=== PATIENT | male | born 1955 | race Caucasian/White ===

== ENCOUNTER 2021-05-23 23:22 | Inpatient (IN) | payer MEDICARE ==
[~2021-05-23] VITALS: Ht 172.7 cm; Wt 88.9 kg
[2021-05-23] MEDS ORDERED: ATORVASTATIN CA80 MG PO (23:45)
[2021-05-23] MEDS ORDERED: PLAVIX75 MG PO (23:45)
[2021-05-23] MEDS ORDERED: LISINOPRIL40 MG PO (23:46)
[2021-05-23] MEDS ORDERED: ADULT ASPIRIN R81 MG PO (23:48)
--- NOTE | 2021-05-24 03:37 | NUR ---
CALLED TON NIXON ON BEHALF OF THE LAB TO NOTIFY HER OF PT GROUP A STREP RESULTS BEING NEGATIVE. CALL TAKEN BY MIKE NIXON.
--- NOTE | 2021-05-24 03:39 | NUR ---
PATIENT ARRIVED AT 0300. PATIENT IS ALERT AND OREITNED. STOOD WITHOUT ASSISTANCE TO TRANSFER TO THE BED. PATIENT IS CLEARING HIS THROAT FREQUENTLY AND HAD MODERATE AMOUNT OF SPUTUM. VOICE IS "RASPY" AND PATIENT STATES IT IS USUALLY NOT LIKE THAT. TOLERATING ROOM AIR. DENIES FEELING SOB. STATES "I'M JUST WORN OUT NOW". LUNG SOUNDS ARE COARSE WITH RHONCHI THROUGHOUT. UPPER AIRWAY CONGESTION NOTED. PATIENT DENIES PAIN, GI CONCERNS, OR SKIN ISSUES. PATIENT AMBULATED TO THE BATHROOM TO HAVE BM AND VOID. RETURNED TO BED. HOB >30 DEGREES. IV SITE WNL X2, FFP INFUSING PER ORER. NO SIGNS OF ADVERSE REACTION. PATIENT VERBALIZED UNDERSTANDING TO REPORT ANY NEW CONCERNS AND TO CALL FOR ASSISTANCE PRIOR TO EXITING THE BED. CALL LIGHT IN REACH.
--- NOTE | 2021-05-24 04:27 | NUR ---
FFP FINISHED. SITE WNL. NO SIGN REACTION. VS STABLE.
--- NOTE | 2021-05-24 05:58 | NUR ---
PATIENT APPEARS TO BE SLEEPING SOUNDLY. LAB IN FOR MORNING DRAW. PATIENT WAKES EASILY. DENIES ANY CONCERNS. CONSONITNUES TO CLEAR HIS THROAT FREQUENTLY. HOB ELEVATED TO 30 DEGREES. VS STABLE.
--- NOTE | 2021-05-24 07:30 | NUR ---
REPORT RECIEVED. PATIENT IS SLEEPING NO DISTRESS NOTED.
--- NOTE | 2021-05-24 07:45 | NUR ---
AWAKE. SAID HE IS BREATHING IS BETTER. VOICE IS SOMEWHAT RASPY. TALKED WITH PATIENT ABOUT POC FOR DAY, INDICATES UNDERSTANDING. YEE IS AWARE OF NPO STATUS. NO QUESTIONS FOR PATIENT.
--- NOTE | 2021-05-24 08:00 | NUR ---
ASSESSMENT DONE BY Shawn REAL RN. PATIENT RESTING WITH HOB ELEVATED. DENYAOS PROBLEMS.
--- NOTE | 2021-05-24 09:20 | NUR ---
SLEEPING, NO DISTRESS NOTED.
--- NOTE | 2021-05-24 11:31 | NUR ---
PT SLEEPING IN BED. CALL LIGHT IN REACH. PT CURRENTLY CLOSE TO NURSES STATION WITH DOOR OPEN.
[2021-05-24] MEDS ORDERED: VITAMIN B-121000 MCG PO (13:35)
--- NOTE | 2021-05-24 13:36 | NUR ---
MED REC COMPLETE
--- NOTE | 2021-05-24 15:40 | NUR ---
CONTINUE TO CLEAR THROAT, SITTNING UP IN BED. STATES HE HAS A SORE THROAT. IS VERY FRUSTRATED AT THIS TIME.
--- NOTE | 2021-05-24 15:41 | NUR ---
SMALL ICE CUBE GIVEN WITH PATIENT SITTING AT A 90 DEGREE ANGLE. CLEARING THROAT AFTER TAKING SMALL ICE CHIP. HOB REMAINS ELEVATED. SISERR IS IN ROOM. PATIENT DENIES SHORTNESS OF BREATH.
--- NOTE | 2021-05-24 17:37 | NUR ---
dr. Alanis updated on patient condition. no futher orders at this time. patient continues to sleep.
--- NOTE | 2021-05-24 18:15 | NUR ---
UP TO COMMODE, UPON GETTING OOB, CONDOM CATH FELL OFF. WILL NOT REPLACE A THIS TIME. WHILE ON COMMODE PAIENT EXPELLED APPROX 600 ML OF VERY LIQUID DARK RED BLOOD. I AM UNSURE IF PATIENT ALSO VOIDED TO COMMODE , WHEN ASKING PATIENT, HE IS UNSUE TOO. IS W/O C/O DIZZINESS WITH MOVEMENT. IS FORGETFUL, NEEDS MUCH DIRECTION WITH TRANSFERS. ANOTHER URINE COLLECTED FROM CONDOM CATH, THIE DONE PER ORDERS.
--- NOTE | 2021-05-24 18:54 | NUR ---
DENEIS PAIN AT THIS TIME. HAS SLEPT MOST OF DAY, NOT RESP DISTRESS NOTED THROUGHOUT THE DAY.
--- NOTE | 2021-05-24 18:56 | EKG ---
[facility] [address] [place], [place] [address] Signed Sinus tachycardia Septal infarct , age undetermined Abnormal ECG No previous ECGs available Confirmed by PRABHJOT QUIÑONEZ MD ([id number]) on 05/24/2021 6:56:32 PM Electronically Signed By: PRABHJOT QUIÑONEZ MD [id number] PATIENT NAME: KATERINE BLANCO Electrocardiogram DATE OF : 51 PHYSICIAN: PRABHJOT QUIÑONEZ MD REPORT #: [id number] REPORT IS CONFIDENTIAL AND NOT TO BE RELEASED WITHOUT AUTHORIZATION
--- NOTE | 2021-05-24 20:21 | NUR ---
PATIENT RESTING IN BED. ALERT AND ORIENTED. REPORTS FEELING SLIGHTLY BETTER LONG HE DOESN'T COUGH. EASIER TIME MANAGING SECREATIONS. NO SIGHS OF SWELLING. VS STABLE. TOLERATING ROOM AIR. LUNG SOUNDS ARE CLEAR, SLIGHTLY COARSE IN THE UPPER AIRWAY. PATIENT'S VOICE IS LESS HARSH THAT IT WAS ON ADDMISSION. IV SITE WNL X2. PATIENT DENIES ANY NEEDS. CALL LIGHT IN REACH.
--- NOTE | 2021-05-24 21:53 | NUR ---
PATIENT RESTING IN BED. VS STABLE. BREATHING IS EASY AND NONLABORED. CALL LIGHT IN REACH.
--- NOTE | 2021-05-25 | NUR ---
URNAL EMPTIED. PATIENT WOKE BREIFLY. IS AAOX4. DENIES ANY CONCERNS. BREATHING IS EASY AND NONLABORED. MILD UPPER AIRWAY COARSNESS HEARD WITH RASPY SPEECH. VS STABLE. CALL LIGHT IN REACH.
--- NOTE | 2021-05-25 03:00 | NUR ---
patient resting quietly. breathing nonlabored and even. vs stable. allowed patient to rest.
--- NOTE | 2021-05-25 05:00 | NUR ---
patient reports feeling well this morning. no throat soreness and easier time managing secreations.lungs are clear. vs stable.
--- NOTE | 2021-05-25 06:00 | NUR ---
lab in for morning draw
--- NOTE | 2021-05-25 07:33 | NUR ---
REPORT RECEIVED FROM NIGHT RN AND PT. CARE RESUMED.
--- NOTE | 2021-05-25 07:53 | NUR ---
PT. IS ALERT AND ORIENTED. DENIES SOB OR DIFFICULTY SWALLOWING. LUNGS CLEAR THROUGHOUT. IV SITES WNL AND FLUSH WELL. PT. STATES HIS MOUTH IS VERY DRY, BUT REFUSED GLYCERIN SWABS AND CHAPSTICK. THIS NURSE ASSISTED PT. WITH PERSONAL CARE. PT. LEFT RESTING WITH CALL LIGHT IN REACH.
--- NOTE | 2021-05-25 08:42 | NUR ---
PATIENT'S SISTER IS IN THE ROOM. PT. IS RESTING WITH NO SIGNS OF DISTRESS. BREATHING IS EVEN AND UNLABORED.
--- NOTE | 2021-05-25 08:58 | NUR ---
ROUNDING ON PATIENT. PT. HAS A DRY COUGH AND REPORTS HE HAS HAD IT FOR MONTHS. HE REQUESTS SOMETHING TO DRINK AND REFUSED MOUTH SWAB. BREATHING UNLABORED AND O2 SAT IS 96%.
--- NOTE | 2021-05-25 09:51 | NUR ---
PER MD, PT. EVALUATED SWALLOWING WATER AND ICE CHIPS. HE WAS GIVEN TEASPOONS OF WATER THEN ICE CHIPS SEATED IN HIGH FOWLERS. PT. TOLERATED WELL WITHOUT COUGHING.
--- NOTE | 2021-05-25 10:16 | NUR ---
DIET ORDER CHANGED TO CLEAR LIQUIDS PER MD.
--- NOTE | 2021-05-25 11:08 | NUR ---
PATIENT VOIDED 400ML OF JOAQUIM URINE IN BEDSIDE URINAL. TOLERATING SIPS OF WATER WELL. PT. DENIED FURTHER NEEDS AT THIS TIME.
--- NOTE | 2021-05-25 14:11 | NUR ---
PATIENT TOLERATING FULL LIQUIDS WELL. VITALS STABLE.
--- NOTE | 2021-05-25 15:31 | NUR ---
ALL DISCHARGE INSTRUCTIONS REVIEWED WITH PATIENT AND ALL QUESTIONS ANSWERED. PHARMACY IN THE ROOM TO EDUCATE PATIENT ON MEDS. VITALS STABLE AND NO DIFFICULTY BREATHING. PT. LEFT WITH ALL BELONGINGS VIA WHEELCHAIR WITH RN AND SISTER.
== END 2021-05-25 15:20 | disposition home or self-care (01) | DRG 916 ==
LOC: ED 23:22 → CCU 05-24 02:44
PROVIDERS: ADMIT Internal Medicine; ATTEND Internal Medicine
PROC: 30233K1 Transfusion of Nonautologous Frozen Plasma into Peripheral Vein, Percutaneous Approach (ICD-10-PCS; principal; 2021-05-24)
DX: T78.3XXA Angioneurotic edema, initial encounter (principal); Z20.822 Contact with and (suspected) exposure to COVID-19; I10 Essential (primary) hypertension; I25.10 Atherosclerotic heart disease of native coronary artery without angina pectoris; T46.4X5A Adverse effect of angiotensin-converting-enzyme inhibitors, initial encounter; I25.2 Old myocardial infarction; Z86.73 Personal history of transient ischemic attack (TIA), and cerebral infarction without residual deficits; Z87.891 Personal history of nicotine dependence; Z98.890 Other specified postprocedural states; Z79.02 Long term (current) use of antithrombotics/antiplatelets; Z79.82 Long term (current) use of aspirin; Z79.899 Other long term (current) drug therapy; X58.XXXA Exposure to other specified factors, initial encounter
CPT/HCPCS: 36430; 80048; 80053; 82803; 85025; 85610; 85730; 93005; 93010; 94640; 99285-25; C9803; J0171; U0003